=== PATIENT | female | born 1990 | race African-American/Black ===

== ENCOUNTER 2025-03-17 08:10 | Emergency (ER) | payer BC ==
[~2025-03-17] VITALS: Ht 165.1 cm; Wt 96.0 kg
[2025-03-17 08:16] VITALS: O2SAT 100
[2025-03-17 08:52] LABS: BASOPHILS % 0.3 % (0.0-2.0); EOSINOPHILS % 0.2 % (0.0-5.0); HEMATOCRIT. 37.7 % (36.0-48.0); HEMOGLOBIN. 12.5 g/dL (12.0-16.0); LYMPHOCYTES % 19.9 % (20.0-50.0); MEAN PLATELET VOLUME 7.1 fl (7.4-10.4); MONOCYTES % 4.9 % (2.0-8.0); NEUTROPHILS % 74.7 % (40.0-76.0); PLATELET 369 x1000/uL (130-400); RED BLOOD CELL COUNT 4.28 mill/uL (4.2-5.4); RED CELL DISTRIBUTION WIDTH 16.0 % (11.6-14.6)
[2025-03-17] MEDS: SODIUM CHLORIDE 0.9% 1,000 ML IV ONE (09:09)
[2025-03-17] MEDS: MORPHINE SULFATE 4 MG/ML INJ (FOR IV/IM USE) IV ONE ×2 (09:09→10:37)
[2025-03-17] MEDS: KETOROLAC 15MG/ML VIAL IV ONE (09:09)
[2025-03-17] MEDS: ONDANSETRON HCL 4MG/2ML INJ IV ONE (09:09)
[2025-03-17 09:16] LABS: CREATININE 0.8 mg/dL (0.6-1.0); UREA NITROGEN BLOOD 10 mg/dL (9-23)
[2025-03-17 09:36] LABS: CLARITY URINE CLOUDY (CLEAR); COLOR URINE ORANGE (YELLOW); GLUCOSE URINE NEGATIVE (NEGATIVE); KETONES URINE 3+ (NEGATIVE); LEUKOCYTE ESTERASE URINE 1+ (NEGATIVE); NITRITE URINE NEGATIVE (NEGATIVE); OCCULT BLOOD URINE 3+ (NEGATIVE); PH URINE >=9.0 (4.5-8.0); PROTEIN URINE 2+ (NEGATIVE); SPECIFIC GRAVITY URINE 1.031 (1.005-1.030); UROBILINOGEN URINE 0.2 E.U./dL (0.2-1.0)
[2025-03-17 09:38] LABS: B-HCG QUANTITATIVE < 1 mIU/mL (<6)
[2025-03-17 09:56] LABS: PROTEIN TOTAL 7.4 g/dL (6.0-8.3)
[2025-03-17 09:57] LABS: ASPARTATE AMINOTRANSFERASE 26 IU/L (<34); BILIRUBIN DIRECT 0.1 mg/dL (<=3.0); BILIRUBIN TOTAL 0.5 mg/dL (0.1-1.0)
[2025-03-17 10:12] LABS: SQUAMOUS EPITHELIAL CELL URINE 1+ /lpf (RARE/1+)
[2025-03-17 10:13] LABS: RBC URINE 50-100 /hpf (0-2)
[2025-03-17 10:14] LABS: BACTERIA URINE 2+; YEAST URINE NONE SEEN
[2025-03-17] MEDS ORDERED: OXYC-100 MT (13:04)
[2025-03-17] MEDS: OXYCODONE HCL/ACETAMINOPHEN 5/325MG TABLET PO ONE (13:26)
[2025-03-17 13:29] VITALS: BP 100/78; PULSE 59; RESP 16; TEMP 37; O2SAT 98
== END 2025-03-17 13:29 | disposition home or self-care (01) ==
LOC: ER 08:35 → CANBEDREQ 13:01 → ER 13:29
DX: R10.20 Pelvic and perineal pain unspecified side (principal); R03.0 Elevated blood-pressure reading, without diagnosis of hypertension; N94.6 Dysmenorrhea, unspecified; Z86.018 Personal history of other benign neoplasm
CPT/HCPCS: 80076; 80048; 81003; 84702; 83690; 85025; 36415; 76830; 76856; 96361; 96374; 96375; 96376; 99285; J1885; J2405; J2270; J7030; Z7610